=== PATIENT | male | born 1950 | race Caucasian/White ===

== ENCOUNTER 2016-08-11 15:22 | Emergency (ER) | payer SELFPAY ==
--- NOTE | ~2016-08-11 | CR151 ---
[facility] A Service of [facility] RADIOLOGY TEXT RESULTS PATIENT: TY JANG LOCATION: [facility] : 54 UNIT #: [id number] AGE: [address]: Yuli Mares APRN SEX: M ORDER DR: [id number] [facility] [address] [place], [place] [address] [id number] E MR#: [id number] Acc #: [id number] NAME: TY JANG. : 1950 SEX: M STUDY DATE/TIME: 08/11/2016 14:58 UNIT: CFTX ROOM: STUDY DESCRIPTION: CR Hip Min 2 Views Rt Attending Physician: Yuli Mares A.P.R.N. Ordering Physician: Mark Galvin M.D. Primary Care Physician: Jase Hill M.D. MEDICAL IMAGING REPORT This report is preliminary unless electronic signature is present EXAM Right hip 2 views, 08/11/2016 INDICATION Bone metastases. Bone pain. Right hip and femoral pain since last night. The patient reportedly fell. TECHNIQUE 2 views of the right femur. COMPARISON 10/16/2015 FINDINGS Left-sided presumably ureteral stent unchanged to the extent visualized. There is a vascular calcification in the left hemipelvis. The patient is status post fracture repair of the right hip with surgical fixation hardware. Extensive sclerotic and partially lytic bone lesions are present throughout the bony pelvis and bilateral hips and proximal femurs. There is probable involvement of the lumbar spine and sacrum as well less well demonstrated. No acute fracture. IMPRESSION 1. No acute fracture identified. 2. Postop changes related to right hip fracture repair. 3. Extensive blastic and lytic metastases in the pelvis and proximal femurs. Left-sided ureteral stent. 4. Interval progression of bony metastases compared to 10/16/2015. Dictated by... Antelmo Simmons M.D. [facility] A Service of [facility] RADIOLOGY TEXT RESULTS PATIENT: TY JANG LOCATION: [facility] : 54 UNIT #: [id number] AGE: [address]: Yuli Mares APRN SEX: M ORDER DR: THIS IS AN ELECTRONICALLY VERIFIED REPORT Antelmo Simmons M.D. at 08/12/2016 7:21 AM Guille TD: 08/12/2016 02:57 JOB #: [id number] MEDICAL IMAGING REPORT COPY
--- NOTE | ~2016-08-11 | CR107 ---
[facility] A Service of [facility] RADIOLOGY TEXT RESULTS PATIENT: TY JANG LOCATION: [facility] : 54 UNIT #: [id number] AGE: [address]: Yuli Mares APRN SEX: M ORDER DR: [id number] [facility] [address] [place], [place] [address] [id number] E MR#: [id number] Acc #: [id number] NAME: TY JANG. : 1950 SEX: M STUDY DATE/TIME: 08/11/2016 15:01 UNIT: CFTX ROOM: STUDY DESCRIPTION: CR Femur 2 Views Rt Attending Physician: Yuli Mares A.P.R.N. Ordering Physician: Ed Markell Galvin M.D. Primary Care Physician: Jase Hill M.D. MEDICAL IMAGING REPORT This report is preliminary unless electronic signature is present EXAM Right femur, 08/11/2016 INDICATION 66-year-old male with pain in the right hip and femur after a fall last night. TECHNIQUE 2 views of the right femur were performed. Correlation is made with hip series 07/22/2013. FINDINGS The patient is status post interval fracture repair of the right hip compared to the 2013 study. Surgical hardware appears intact. No acute fracture. Primarily sclerotic bone lesions are present in the right hip, femur and visualized pelvis most characteristic of metastatic disease. Findings have progressed since 2014. There is mild degenerative change of the right knee. Atherosclerotic calcifications present. Left ureteral stent partially visualized in the field of view. Bony metastases also involve the visualized tibia and fibula. IMPRESSION 1. No acute fracture. Interval fracture repair of the right hip compared to a more distant 2014 study. 2. Interval progression of osseous metastases in the pelvis and right femur and lower leg. 3. Left-sided ureteral stent partially included in the field of view. Dictated by... [facility] A Service of [facility] RADIOLOGY TEXT RESULTS PATIENT: TY JANG LOCATION: [facility] : 54 UNIT #: [id number] AGE: [address]: Yuli Mares APRN SEX: M ORDER DR: Antelmo Simmons M.D. THIS IS AN ELECTRONICALLY VERIFIED REPORT Antelmo Simmons M.D. at 08/12/2016 7:21 AM ROSA/tish TD: 08/12/2016 03:34 JOB #: [id number] MEDICAL IMAGING REPORT COPY
[~2016-08-11 15:22] MED LIST: AMITRYPTYLINE PO; CALCIUM 500 +1 EAC1 PO; CELEXA20 MG PO; EFFEXOR PO; GABAPENTIN300 M2 PO; HYDROCHLOROTHIA25 MG PO; HYDROCODON-ACE1 EAC5 PO; HYDROCODON-ACE1 EAC9 PO; KEFLEX; LEVAQUIN750 M1 PO; LISINOPRIL10 MG PO; LORTAB 7.51 TAB PO; LOTENSIN HCT 101 TAB; LOTREL 5/10 MG1 CAP PO; LYRICA; LYRICA100 MG PO; METHADONE; METHADONE PO; MOBIC15 MG PO; NORVASC PO; PERCOCET 10/31 UDTA1 PO; PHENERGAN; PHENERGAN SUPP25 MG PR; PHENERGAN25 M1 PO; PREVACID SOLUTA30 MG PO; PROTONIX; TEMAZEPAM; TUSSIN15 MG/5 M1 PO; VICODIN; VITAMIN D2000 UNIT PO
== END 2016-08-11 16:36 | disposition home or self-care (01) ==
LOC: CFTX 15:22
DX: C79.51 Secondary malignant neoplasm of bone (principal); C61 Malignant neoplasm of prostate; K75.9 Inflammatory liver disease, unspecified; J44.9 Chronic obstructive pulmonary disease, unspecified; I10 Essential (primary) hypertension; G89.29 Other chronic pain
CPT/HCPCS: 73502; 73552; 96372; 99284; J2270; J2405

== ENCOUNTER 2017-01-28 22:02 | Emergency (ER) | payer MEDICARE ==
--- NOTE | ~2017-01-28 | EKG ---
PATIENT: TY JANG UNIT #: [id number] Ventricular Rate: 62 BPM Atrial Rate: 62 BPM P-R Interval: 150 ms QRS Duration: 92 ms Q-T Interval: 518 ms QTC Calculation(Bezet): 525 ms P [place]: 47 degrees Calculated R [place]: -25 degrees Calculated T Danforth: -51 degrees Diagnosis Line: Sinus rhythm with frequent Premature ventricular Diagnosis Line: complexes in a pattern of bigeminy Diagnosis Line: Nonspecific ST and T wave abnormality Diagnosis Line: Long QTc Diagnosis Line: Abnormal ECG Diagnosis Line: No previous ECGs available Diagnosis Line: Confirmed by BENTON CALLAHAN MD ([id number]) on 01/30/2017 Diagnosis Line: 4:55:27 PM INTERPRETING MD: SINDY ESTEVEZ
[2017-01-28 23:33] LABS: BASOPHIL% 0.5 % (0-2.5); EOSINOPHIL% 0.1 % (0.0-7.0); HEMATOCRIT 34.1 % (38.0-50.0); HEMOGLOBIN 10.6 gm/dL (13.0-16.0); LYMPHOCYTE# 0.9 X10e3 (1.0-3.5); MEAN CELL VOLUME 66.7 FL (83-96); MEAN CORPUSCULAR HEMOGLOBIN 20.8 PG (28-34); MEAN CORPUSCULAR HGB CONC 31.2 g/dL (30-36); MEAN PLATELET VOLUME 7.5 FL (6.5-11.5); MONOCYTE# 0.8 X10e3 (0-1.0); MONOCYTE% 9.5 % (3.0-12.0); NEUTROPHIL# 6.5 X10e3 (1.5-7.1); NEUTROPHIL% 78.9 % (40-75); PLATELET COUNT 414 X10e3 (140-420); RED CELL DISTRIBUTION WIDTH 18.7 % (11.0-15.5); WHITE BLOOD COUNT 8.2 X10e3 (4.0-10.5)
[2017-01-28 23:37] LABS: DIFF IND NO
[2017-01-29] LABS: ALBUMIN SERUM 3.5 g/dL (3.5-5.0); BILIRUBIN, DIRECT 0.1 mg/dL (0.0-0.2); BILIRUBIN,INDIRECT 0.7 mg/dL (0.0-0.9); BILIRUBIN,TOTAL 0.8 mg/dL (0.2-2.0); CALCIUM SERUM 8.9 mg/dL (8.4-10.2); CREATININE SERUM 0.9 mg/dL (0.6-1.4); GLOM FILT RATE Estimated 89.3 mL/min (>60); PROTEIN TOTAL SERUM 7.9 g/dL (6.0-8.3)
[2017-01-29 00:01] LABS: POTASSIUM 2.8 mmol/L (3.5-5.1)
[2017-01-29 00:14] LABS: POC - CKMB 1.2 ng/mL (0.0-7.9); POC - TROPONIN <0.05 ng/mL (<=0.05)
[2017-01-29 01:31] LABS: POC - TROPONIN <0.05 ng/mL (<=0.05)
== END 2017-01-29 02:28 | disposition home or self-care (01) ==
LOC: CED 22:02
PROVIDERS: Emergency Medicine
DX: E87.6 Hypokalemia (principal); G89.3 Neoplasm related pain (acute) (chronic); C61 Malignant neoplasm of prostate; C79.51 Secondary malignant neoplasm of bone; I10 Essential (primary) hypertension
CPT/HCPCS: 36415; 80048; 80076; 82553; 83690; 84484; 85025; 93005; 96361; 96365; 96366; 96375; 99284; J1170; J2405

== ENCOUNTER 2017-01-31 20:58 | Emergency (ER) | payer MEDICARE ==
[~2017-01-31] VITALS: Ht 180.3 cm; Wt 72.6 kg
--- NOTE | ~2017-01-31 | CR107 ---
[facility] A Service of [facility] RADIOLOGY TEXT RESULTS PATIENT: TY JANG LOCATION: [facility] : 54 UNIT #: [id number] AGE: [address]: Bronson Washburn MD SEX: M ORDER DR: [id number] [facility] [address] [place], [place] [address] [id number] E MR#: [id number] Acc #: [id number] NAME: TY JANG. : 1950 SEX: M STUDY DATE/TIME: 01/31/2017 21:31 UNIT: [facility] ROOM: STUDY DESCRIPTION: CR Femur 2 Views Rt Attending Physician: Bronson Washburn M.D. Ordering Physician: Bronson Washburn M.D. Primary Care Physician: Jase Hill M.D. MEDICAL IMAGING REPORT This report is preliminary unless electronic signature is present EXAM Right femur, 01/31/2017. HISTORY 67-year-old male with right leg pain for 1 week. Known history of metastatic osseous disease. No specific injury. COMPARISON Right femur, 08/11/2016. FINDINGS Four views of the right femur demonstrate postsurgical changes from right intramedullary hip screw. There are extensive sclerotic metastatic lesions throughout the visualized pelvis, sacrum, right femur, and proximal tibia/fibula. Findings consistent with known history of osseous metastatic disease. No evidence of a pathologic fracture. No dislocation. There is new periosteal reaction involving the proximal femoral metaphysis. IMPRESSION 1. Extensive osseous metastatic disease, detailed above. 2. Interval development of periosteal reaction along the proximal right femoral metaphysis. No evidence of a pathologic fracture. 3. Postsurgical changes from intramedullary right hip screw. Dictated by... Wes Roy M.D. THIS IS AN ELECTRONICALLY VERIFIED REPORT Wes Roy M.D. at 02/02/2017 10:44 AM JKB/tmw [facility] A Service of [facility] RADIOLOGY TEXT RESULTS PATIENT: TY JANG LOCATION: [facility] #: [id number] : 54 UNIT #: [id number] AGE: [address]: Bronson Washburn MD SEX: M ORDER DR: TD: 02/01/2017 21:26 JOB #: [id number] MEDICAL IMAGING REPORT Page 1 of 1 COPY
== END 2017-01-31 22:25 | disposition left against medical advice (07) ==
LOC: CED 20:58
DX: M79.651 Pain in right thigh (principal); C41.9 Malignant neoplasm of bone and articular cartilage, unspecified; C79.9 Secondary malignant neoplasm of unspecified site; I10 Essential (primary) hypertension; J44.9 Chronic obstructive pulmonary disease, unspecified; Z86.19 Personal history of other infectious and parasitic diseases
CPT/HCPCS: 73552; 99283